=== PATIENT | male | born 1975 | race Caucasian/White ===

== ENCOUNTER 2018-02-24 01:35 | Emergency (ER) | payer SELFPAY ==
[~2018-02-24] VITALS: Ht 172.7 cm; Wt 99.8 kg
[2018-02-24 01:39] VITALS: BP_SYST 142
[2018-02-24] MEDS ORDERED: IBUPROFEN 800 MG TABLET PO ONE (02:45)
[2018-02-24 03:40] VITALS: BP_SYST 130
== END 2018-02-24 03:40 ==
LOC: SED 01:35
DX: S20.211A Contusion of right front wall of thorax, initial encounter (principal); S60.811A Abrasion of right wrist, initial encounter; S60.812A Abrasion of left wrist, initial encounter; V29.9XXA Motorcycle rider (driver) (passenger) injured in unspecified traffic accident, initial encounter; Y93.55 Activity, bike riding; Y92.410 Unspecified street and highway as the place of occurrence of the external cause; Y99.8 Other external cause status
CPT/HCPCS: 71100; 99284; J7030